=== PATIENT | male | born 2000 | race Caucasian/White ===

== ENCOUNTER 2019-10-03 14:03 | Emergency (ER) | payer SELFPAY ==
[~2019-10-03] VITALS: Ht 177.8 cm; Wt 76.7 kg
[2019-10-03 14:09] VITALS: BP 119/75; Ht 177.8 cm; Wt 76.7 kg
== END 2019-10-03 14:31 | disposition home or self-care (01) ==
LOC: ED 14:03
DX: R50.9 Fever, unspecified (principal); M79.10 Myalgia, unspecified site; Z20.828 Contact with and (suspected) exposure to other viral communicable diseases